=== PATIENT | male | born 1950 | race Caucasian/White ===

== ENCOUNTER 2017-09-21 13:46 | Emergency (ER) | payer OTHER, MEDICARE | END 2017-09-21 15:36 | disposition home or self-care (01) | LOC: M ED 13:46 | DX: M79.672 Pain in left foot (principal); I10 Essential (primary) hypertension; M19.072 Primary osteoarthritis, left ankle and foot; Z79.899 Other long term (current) drug therapy | CPT/HCPCS: 73610 ==